=== PATIENT | female | born 1990 | race Caucasian/White ===

== ENCOUNTER 2016-04-27 00:39 | Emergency (ER) | payer SELFPAY ==
[~2016-04-27] VITALS: Ht 160 cm; Wt 49.0 kg
[2016-04-27 00:50] VITALS: BP 122/82
[2016-04-27] MEDS ORDERED: BIRTH CONTROL PILLS (00:50)
[2016-04-27] MEDS ORDERED: GENTAK5 ML LEFT EYE (01:03)
[2016-04-27] MEDS ORDERED: AMOXICILLIN500 MG ORAL (01:03)
[2016-04-27] MEDS ORDERED: PROMETHAZINE-D118 ML ORAL (01:04)
[2016-04-27 01:10] VITALS: BP 122/82
--- NOTE | 2016-04-27 05:34 | Emergency Room Report ---
History of Present Illness General Chief Complaint: Eye Problems Source: Patient Present Illness HPI Patient is a 26-year-old female presented after increased sore throat as well as left eye pain. The patient for having increased pain and swelling to her left eye as well as some discharge. Patient had had denied visual changes. She nonproductive cough associated . She had a moderate sore throat. She noticed increased discharge from her left eye which is yellow-green in nature. She denied any fever. Allergies: Coded Allergies: DOXYCYCLINE (Verified Allergy, Unknown, 04/27/16) Patient History Past Medical History: see triage record Last Menstrual Period: last month Reviewed Nursing Documentation: PMH: Agreed, PSxH: Agreed Nursing Documentation-PMH Past Medical History: No Stated History Review of Systems All Other Systems: negative except mentioned in HPI Physical Exam Vital Signs Date Time Temp Pulse Resp B/P Pulse Ox O2 Delivery O2 Flow Rate FiO2 04/27/16 00:42 98.4 81 16 122/82 100 General Appearance: well appearing, no apparent distress, alert, GCS 15 Head: normocephalic, atraumatic Eyes: bilateral eye PERRL, bilateral eye other - left eye discharge ENT: hearing grossly normal, normal voice Neck: full range of motion, supple Respiratory: lungs clear, normal breath sounds, no respiratory distress, speaking full sentences Cardiovascular #1: normal inspection Gastrointestinal: normal inspection Musculoskeletal: normal inspection, back normal, no calf tenderness Neurologic: normal inspection, alert, oriented x3, responsive, normal gait Psychiatric: normal inspection, mood/affect normal Skin: no rash Medical Decision Making Diagnostic Impression: Primary Impression: Conjunctivitis Additional Impression: Sinusitis ER Course Patient presents for eye redness and discharge.Differential diagnosis included but wasn't limited to glaucoma, iritis, corneal abrasion, bacterial conjunctivitis, viral conjunctivitis. Patient's benign exam and does not appear to require any further imaging or laboratory testing at this time. The visual acuity was noted be normal. The patient appears to have some evidence of the conjunctivitis. Patient was started on antibiotic drops as well as oral antibiotics. The patient is advised to follow up with primary care doctor in 1-2 days. Patient is advised to return if any worsening condition or if any changes in status that are concerning. Last Vital Signs Date Time Temp Pulse Resp B/P Pulse Ox O2 Delivery O2 Flow Rate FiO2 04/27/16 01:10 98.4 16 122/82 100 3/23/17 00:42 81 Status: improved Disposition: HOME, SELF-CARE Condition: Stable Scripts D-Methorphan Hb/Prometh Hcl* (PROMETHAZINE-DM SYRUP*) 118 Ml Syrup 5 ML ORAL Q4H Y for For Cough, #120 ML 0 Refills Prov: Anibal Clarke 04/27/16 Gentamicin Sulfate* (GENTAK*) 5 Ml Drops 1 DROP LEFT EYE Q4H, #1 DROP 0 Refills Prov: Anibal Clarke 04/27/16 Amoxicillin* (AMOXIL*) 500 Mg Capsule 500 MG ORAL THREE TIMES A DAY, #21 CAP Prov: Anibal Clarke 04/27/16 Referrals: NOT CHOSEN IPA/MD,REFERRING (PCP) Patient Instructions: Bacterial Conjunctivitis, Sinusitis, Adult Anibal Clarke Apr 27, 2016 05:34
== END 2016-04-27 01:15 | disposition home or self-care (01) ==
LOC: EMR 01:00
DX: J32.9 Chronic sinusitis, unspecified (principal); H10.9 Unspecified conjunctivitis; Z88.1 Allergy status to other antibiotic agents
CPT/HCPCS: 99284